=== PATIENT | male | born 1995 | race American Indian/Alaskan Native ===

== ENCOUNTER 2017-06-10 18:24 | Emergency (ER) | payer BC, OTHER ==
--- NOTE | 2017-06-10 20:59 | XRay Report ---
FINAL REPORT PROCEDURE: XR KNEE 3V RT TECHNIQUE: Three-view right knee HISTORY: Dislocation of knee during fall COMPARISON: No prior studies are available for comparison. FINDINGS: Mild swelling about the right knee. Small suprapatellar effusion. No definite dislocation seen at this time. No fracture. IMPRESSION: No fracture or dislocation suspected at this time. Soft tissue swelling with small effusion.
[2017-06-11] MEDS ORDERED: ULTRAM PO ONE (00:51)
--- NOTE | 2017-06-11 01:19 | Emergency Department Report ---
ED Lower Extremity HPI - General Chief Complaint: Extremity Injury, Lower Stated Complaint: RIGHT LEG PAIN Time Seen by Provider: 06/11/17 00:44 Source: patient Mode of arrival: Ambulatory Limitations: No Limitations - History of Present Illness Initial Comments: pt is a 22 y/o aam who presents for right knee pain s/p glf playing basketball today, pain 7/10 aching mild swelling , pt remains ambulatory , but with pain, MD Complaint: knee injury Onset/Timin -: days(s) Injury: Knee: Right Type of Injury: other (twisting) Place: street/outdoors Severity: mild Severity scale (0 -10): 5 Improves With: rest Worsens With: weight bearing, movement, palpation Context: running, other (twisting ) - Related Data Previous Rx's Medication Instructions Recorded Last Taken Type Ibuprofen [Motrin 600 MG tab] 600 mg PO Q8H PRN #30 tablet 02/08/15 Unknown Rx Cyclobenzaprine [Flexeril] 10 mg PO BID PRN #20 tablet 06/11/17 Unknown Rx Naproxen 500 mg PO BID PRN #30 tablet 06/11/17 Unknown Rx Allergies Allergy/AdvReac Type Severity Reaction Status Date / Time No Known Allergies Allergy Verified 06/10/17 18:34 ED Review of Systems ROS: Stated complaint: RIGHT LEG PAIN Other details as noted in HPI Constitutional: denies: chills, fever Eyes: denies: eye pain, eye discharge, vision change ENT: denies: ear pain, throat pain Respiratory: denies: cough, shortness of breath, wheezing Cardiovascular: denies: chest pain, palpitations Endocrine: no symptoms reported Gastrointestinal: denies: abdominal pain, nausea, diarrhea Genitourinary: denies: urgency, dysuria Musculoskeletal: joint swelling. denies: back pain, arthralgia, myalgia Skin: denies: rash, lesions Neurological: denies: headache, weakness, paresthesias Psychiatric: denies: anxiety, depression Hematological/Lymphatic: denies: easy bleeding, easy bruising ED Past Medical Hx - Past Medical History Previous Medical History?: No - Surgical History Past Surgical History?: No - Social History Smoking Status: Current Every Day Smoker Substance Use Type: None - Medications Home Medications: Home Medications Medication Instructions Recorded Confirmed Last Taken Type Ibuprofen [Motrin 600 MG tab] 600 mg PO Q8H PRN #30 tablet 02/08/15 Unknown Rx Cyclobenzaprine [Flexeril] 10 mg PO BID PRN #20 tablet 06/11/17 Unknown Rx Naproxen 500 mg PO BID PRN #30 tablet 06/11/17 Unknown Rx ED Physical Exam - General Limitations: No Limitations General appearance: alert, in no apparent distress - Head Head exam: Present: atraumatic, normocephalic - Eye Eye exam: Present: normal appearance, PERRL, EOMI Pupils: Present: normal accommodation - ENT ENT exam: Present: mucous membranes moist - Neck Neck exam: Present: normal inspection, full ROM. Absent: tenderness, lymphadenopathy, thyromegaly - Respiratory Respiratory exam: Present: normal lung sounds bilaterally. Absent: respiratory distress, wheezes, rhonchi, chest wall tenderness - Cardiovascular Cardiovascular Exam: Present: regular rate, normal rhythm, normal heart sounds. Absent: systolic murmur, diastolic murmur, rubs, gallop - GI/Abdominal GI/Abdominal exam: Present: soft, normal bowel sounds. Absent: distended, tenderness, guarding, rebound, rigid, mass, bruit, pulsatile mass - Rectal Rectal exam: Present: deferred - exam: Present: normal inspection - Extremities Exam Extremities exam: Present: normal inspection, full ROM, tenderness (right anterior knee pain swelling ), normal capillary refill, joint swelling. Absent : pedal edema, calf tenderness - Expanded Lower Extremity Exam Right Knee exam: Present: tenderness, swelling, pain w/ pronation/supination, full knee extension. Absent: abrasion, laceration, ecchymosis, deformity, crepidus, dislocation, erythema, effusion, posterior draw sign, pain/laxity with valgus, pain/laxity with varus Lower Leg exam: Present: normal inspection, full ROM Ankle exam: Present: normal inspection, full ROM Foot/Toe exam: Present: normal inspection, full ROM Neuro vascular tendon exam: Present: no vascular compromise Gait: Positive: observed and normal - Back Exam Back exam: Present: normal inspection, full ROM. Absent: tenderness, CVA tenderness (R), CVA tenderness (L), muscle spasm, paraspinal tenderness, vertebral tenderness, rash noted - Neurological Exam Neurological exam: Present: alert, oriented X3, normal gait, reflexes normal - Psychiatric Psychiatric exam: Present: normal affect, normal mood - Skin Skin exam: Present: warm, dry, intact, normal color. Absent: rash ED Course Vital Signs 06/10/17 06/11/17 18:34 00:59 Temperature 98 F Pulse Rate 86 Respiratory 18 18 Rate Blood Pressure 123/75 O2 Sat by Pulse 99 Oximetry ED Lower Extremity MDM - Radiology Data Radiology results: report reviewed, image reviewed no effusion or dislocation, mild soft tissue swelling with small effusion - Medical Decision Making pt is a 22 y/o aam who presents for right knee pain s/p glf playing basketball today, pain 7/10 aching mild swelling , pt remains ambulatory , but with pain, exam no drawer no ecchymosis no deformity no erythema no fever , pain with rotation, no patella tendon pain , xray negative for fracture no suspicion of derrangement, plan: nsaids muscle relaxants, rice, crutches follow up with ortho in 2-3 days discussed same with patient pt verbalized agreement and understanding of same, pt for dc to self in stable condition at this time. Critical care attestation.: If time is entered above; I have spent that time in minutes in the direct care of this critically ill patient, excluding procedure time. ED Disposition Clinical Impression: Knee sprain Qualifiers: Encounter type: initial encounter Involved ligament of knee: unspecified ligament Laterality: right Qualified Code(s): S83.91XA - Sprain of unspecified site of right knee, initial encounter Disposition: DC-01 TO HOME OR SELFCARE Is pt being admited?: No Does the pt Need Aspirin: No Condition: Good Instructions: Leg Sprain (ED), Knee Sprain (ED) Prescriptions: Cyclobenzaprine [Flexeril] 10 mg PO BID PRN #20 tablet PRN Reason: Muscle Spasm Naproxen 500 mg PO BID PRN #30 tablet PRN Reason: Pain Referrals: PRIMARY CARE, [Primary Care Provider] - 3-5 Days Forms: Work/School Release Form(ED) Time of Disposition: 01:25
[2017-06-11 01:34] VITALS: BP 121/79
== END 2017-06-11 01:34 | disposition home or self-care (01) ==
LOC: ED 18:24
DX: S83.91XA Sprain of unspecified site of right knee, initial encounter (principal); F17.200 Nicotine dependence, unspecified, uncomplicated; W21.05XA Struck by basketball, initial encounter; Y93.89 Activity, other specified; Y92.89 Other specified places as the place of occurrence of the external cause; Y99.8 Other external cause status